=== PATIENT | female | born 1945 | race Caucasian/White ===

== ENCOUNTER 2017-11-24 20:18 | Emergency (ER) | payer OTHER, MEDICAID ==
[2017-11-24 23:13] VITALS: BP 155/75
== END 2017-11-24 23:13 | disposition home or self-care (01) ==
LOC: ED 20:18
DX: S61.211A Laceration without foreign body of left index finger without damage to nail, initial encounter (principal); E11.9 Type 2 diabetes mellitus without complications; W26.0XXA Contact with knife, initial encounter; Y93.89 Activity, other specified; Y92.89 Other specified places as the place of occurrence of the external cause; Y99.8 Other external cause status
CPT/HCPCS: A4570; J2001

== ENCOUNTER 2018-04-17 08:21 | Inpatient (IN) | payer OTHER, MEDICAID ==
[~2018-04-17] VITALS: Ht 157.5 cm; Wt 98.9 kg
[2018-04-17 08:27] VITALS: Ht 157.5 cm; Wt 98.9 kg
--- NOTE | 2018-04-17 08:50 | NUR ---
PT BIB AMBULANCE FROM HOME FOR C/O SOB. PT HAS RECENTLY HAD A COLD, BUT BECAME INCREASINGLY SOB TODAY. PT STATES SHE HAS PAIN WHEN SHE TRIES TO BREATHE. PT HAS HX OF HTN, HIGH CHOLESTEROL AND DIABETES. SON IS AT BEDSIDE AND SPEAKS ARGENTINE. PT HAS 20G IV IN L HAND. PT O2 SATURATION IS WNL, BUT FEELS SOB STILL. PT HAS PRODUCTIVE COUGH WITH GREEN SPUTUM. PT DENIES ANY OTHER SXS AT THIS TIME BESIDES COUGH AND SOB. PT IS TACHY ON THE MONITORS. WILL CONTINUE TO MONITOR. DR VUONG NOTIFIED OF SOB.
[2018-04-17 08:53] LABS: BASOPHIL % 0.5 % (0-2); PLATELET COUNT 191 x10^3mcL (130-400); RED CELL DISTRIBUTION WIDTH 13.4 % (11.5-14.5)
[2018-04-17 09:18] LABS: CALCIUM 9.3 mg/dL (8.5-10.1); CARBON DIOXIDE 28.1 mmol/L (21-32); CHLORIDE SERUM 101 mmol/L (98-107); GLUCOSE SERUM 131 mg/dL (74-106); POTASSIUM SERUM 3.6 mmol/L (3.5-5.1); SODIUM SERUM 137 mmol/L (136-145)
[2018-04-17 09:23] LABS: ALBUMIN 3.5 g/dL (3.4-5.0); ALKALINE PHOSPHATASE 111 U/L (46-116); ALT/SGPT 25 U/L (14-59); AST/SGOT 16 U/L (15-37); TOTAL PROTEIN, SERUM 7.8 g/dL (6.4-8.2)
--- NOTE | 2018-04-17 09:59 | NUR ---
PT ATTEMPTED AMBULATION TO RESTROOM AND BECAME VERY SHORT OF BREATH. NO DISTRESS; SKIN REMAINED WNL. PT STOOD IN PLACE AND RESTED AND WAS THEN WHEELED TO RESTROOM AND BACK. DR VUONG INFORMED OF SAME.
--- NOTE | 2018-04-17 10:15 | NUR ---
ABG ATTEMPTED LEFT RADIAL/BRACHIAL UNABLE TO OBTAIN SAMPLE. PT REFUSING FUTHER ATTEMPTS. PT SON AT BEDSIDE, DR. VUONG NOTIFIED, WILL CONT. TO MONITOR
[2018-04-17 10:18] LABS: microscopic required? YES; urine erythrocyte NEGATIVE (NEGATIVE)
--- NOTE | 2018-04-17 10:54 | NUR ---
ROCEPHIN INFUSING WILL BEGIN NEXT ABX IN 30MIN WHEN THEY ARE DONE.
--- NOTE | 2018-04-17 10:55 | NUR ---
FAMILY AT BEDSIDE. PT HAVING EASY UNLABORED BREATH, RESTING IN BED. NO DISTRESS NOTED AT THIS TIME.
[2018-04-17] MEDS ORDERED: NORCO1 TA2 (12:08)
[2018-04-17] MEDS ORDERED: OMEPRAZOLE20 M4 PO (12:09)
[2018-04-17] MEDS ORDERED: RESTORIL15 MG PO (12:10)
[2018-04-17] MEDS ORDERED: ACT30 PO (12:10)
[2018-04-17] MEDS ORDERED: LISINOPRIL40 MG PO (12:11)
[2018-04-17] MEDS ORDERED: TESSALON PERLE100 MG PO (12:12)
[2018-04-17] MEDS ORDERED: LEVAQUIN750 MG PO (12:12)
[2018-04-17] MEDS ORDERED: ADV100/50 INH (12:13)
[2018-04-17] MEDS ORDERED: PROINH (12:13)
[2018-04-17] MEDS ORDERED: ACETAMINOPHEN A1 TAB (12:13)
--- NOTE | 2018-04-17 13:25 | NUR ---
RECEIVED PT VIA [email or web address] FROM E/D, ACCOMPANIED BY RN AND TRANSPORTER. PT A/A/O X 4, CALM, COOPERATIVE, WITH INTERMITTENT THROBBING H/A / AND DIZZINESS. PT ABLE TO AMBULATE WITH ASSIST FROM GUERNEY TO BED, STATES USES WALKER AT HOME, FALL RISK PROTOCOL INITIATED; HAS ACHING BACK PAIN 08/10. ON TELE # 13, ST, HR 106, DENIES CHEST PAIN OR DISCOMFORT AT THIS TIME. BUL CLEAR, BLL DIM, CHEST RISING EVENLY, R/A, 92%, DRY COUGH. VOIDS FREELY, DENIES DYSURIA. IV SITE 20G, CDI. ORIENTED PT TO ROOM, BED CONTROLS, CALL LIGHT SYSTEM. SIDE RAILS UP X 2, BED IN LOW POSITION. WILL ENDORSE TO KOBE MEEKS.
[2018-04-17 14:02] VITALS: BP 111/63
[2018-04-17 14:50] LABS: CHOLESTEROL/HDL RATIO 4.2; MAGNESIUM 1.9 mg/dL (1.8-2.4); PHOSPHOROUS 2.9 mg/dL (2.5-4.9)
[2018-04-17 14:59] LABS: FREE T4 0.98 ng/dL (0.76-1.46); FREE THYROXINE INDEX 3.2 ug/dL (1.4-4.5); T4(THYROXINE) 9.6 ug/dL (4.7-13.3)
[2018-04-17 16:50] VITALS: BP 106/65
[2018-04-17 17:29] VITALS: BP 106/65
--- NOTE | 2018-04-17 18:22 | NUR ---
ATTEMPT TO GET ABG DOWN IN ER. PT STATED WAS TOO PAINFUL TO STOP. ABG WAS FIRST ATTEMPTED BY RT MAT PENG WHO WAS UNABLE TO GET A SAMPLE WELL. MAT PENG NOTIFIED
--- NOTE | 2018-04-17 19:30 | NUR ---
REPORT RECIEVED FROM DAY SHIFT RN. PATIENT WAS SEEN AND IS RESTING COMFORTBALY IN BED. ON ROOM AIR. NO SOB OR DISTRESS NOTED. DENIES CHEST PAIN. ON ROOM AIR. C/O OF 8 HEADACHE. PROVIDED PATIENT WITH NONPHARM MEASURES SUCH DECREASED STIMULI. IV TO THE LEFT HAND WITH NS RUNNING AT 100ML/HR WELL. PATENT AND INTACT. NO REDNESS OR SWELLING NOTED. COMFORT AND SAFETY MEASURES MAINTAINED. CALL LIGHT WITHIN REACH. EDUCATED PATIENT TO CALL FOR ASSISTANCE. PATIENT VERBALIZED UNDERSTANDING. BED IS LOCKED AND IN THE LOWEST POSITION. SIDE RAILS UP X2. WILL CONTINUE TO MONITOR PATIENT.
--- NOTE | 2018-04-17 20:20 | NUR ---
RT WITH PATIENT ADMINISTEREING BREATHING TREATMENT.
--- NOTE | 2018-04-17 20:22 | NUR ---
PATIENT IS C/O OF 8/10 HEADACHE AFTER NONPHARM MEASURES. MEDICATED PATIENT WITH PRN NORCO PRESCRIBED. WILL CONTINUE TO MONITOR PATIENT AND ASSESS PAIN LEVEL. EDUCATED PATIENT THAT NORCO MAY CAUSE DROWSINESS. PATIENT VERBALIZED UNDERSTANDING.
[2018-04-17 20:29] VITALS: BP 129/62
--- NOTE | 2018-04-17 21:45 | NUR ---
PATIENT IS C/O OF NASAL CONGESTION. NOTIFIED DR. PERKINS. SHE SAID SHE WILL PUT IN A MEDICATION ORDER.
--- NOTE | 2018-04-18 02:30 | NUR ---
PATIENT IS ASLEEP AT THIS TIME. NO SOB OR DISTRESS NOTED. ON ROOM AIR. NO S/S OF PAIN. CALL LIGHT IS WITHIN REACH. IV INFUSING WELL. WILL CONTINUE TO MONITOR.
[2018-04-18 06:10] VITALS: BP 137/70
--- NOTE | 2018-04-18 06:40 | NUR ---
PATIENT SLEPT THROUGHOUT THE NIGHT. NO ACUTE CHANGES NOTED. NO C/O OF PAIN. DENIES CHEST PAIN. IV TO THE LEFT HAND INSFUSING NS WELL. PATENT AND INTACT. NO REDNESS OR SWELLING NOTE. ON ROOM AIR. NO SOB OR DISTRESS NOTED. COMFORT AND SAFETY MEASURES MAINTAINED. CALL LIGHT IS WITHIN REACH. PATIENT INSTRUCTED TO CALL FOR ASSISTANCE. PATIENT VERBALIZED UNDERSTANDING. BED IS LOCKED AND IN THE LOWEST POSITION. SIDE RAILS UP X2. WILL ENDORSE CARE TO DAY SHIFT RN.
--- NOTE | 2018-04-18 07:15 | NUR ---
RECEIVED PT. IN BED A/A/O X3. NO SOB, NO N/V NOTED. PT. DENIES ANY PAIN AT THIS TIME. NS RUNNING AT 100 CC/HR VIA IV SITE AT L HAND. BED IN LOW POS., CALL LIGHT WITHIN REACH. SIDE RAILS UP X3.
[2018-04-18 07:55] VITALS: BP 147/87
[2018-04-18 07:56] LABS: CALCIUM 8.7 mg/dL (8.5-10.1); CHLORIDE SERUM 102 mmol/L (98-107); CREATININE SERUM 0.9 mg/dL (0.6-1.0); GLUCOSE SERUM 193 mg/dL (74-106); POTASSIUM SERUM 4.2 mmol/L (3.5-5.1); SODIUM SERUM 136 mmol/L (136-145)
[2018-04-18 08:08] LABS: PLATELET COUNT 200 x10^3mcL (130-400); RED CELL DISTRIBUTION WIDTH 13.5 % (11.5-14.5)
[2018-04-18 08:10] LABS: BASOPHIL % 0 % (0-2)
[2018-04-18 12:29] VITALS: BP 138/66
[2018-04-18 17:10] VITALS: BP 140/56
--- NOTE | 2018-04-18 18:05 | NUR ---
REMAINS IN STABLE CONDITION AT THIS TIME. WILL CONTINUE TO MONITOR.
--- NOTE | 2018-04-18 19:15 | NUR ---
REPORT RECIEVED FROM DAY SHIFT RN. PATIENT WAS SEEN AND IS RESTING COMFORTABLE AT THIS TIME. ON ROOM AIR. A/O X4. NO SOB OR DISTRESS NOTED. BREATHING IS EVEN AND UNALBORED. DENIES CHEST PAIN. NO C/O OF PAIN. IV TO THE LEFT HAND INFUSING NS WELL. PATENT AND INTACT. NO REDNESS OR SWELLING NOTED. COMFORT AND SAFETY MEASURES MAINTAINED. CALL LIGHT IS WITHIN REACH. INSTRUCTED PATIENT TO CALL FOR ASSISTANCE. BED IS LOCKED AND IN THE LOWEST POSITION. SIDE RAILS UP X2. WILL CONTINUE TO MONITOR PATIENT.
[2018-04-18 20:57] VITALS: BP 137/65
[2018-04-18 21:20] VITALS: BP 124/62
--- NOTE | 2018-04-19 00:24 | NUR ---
ASSISTED PATIENT TO THE BATHROOM. PATIENT IS BACK IN BED. COMFORT AND SAFETY MEASURES MAINTAINED. CALL LIGHT IS WITHIN REACH. INSTRUCTED PATIENT TO CALL FOR ASSISTANCE.
--- NOTE | 2018-04-19 03:23 | NUR ---
PATIENT IS ASLEEP AT THIS TIME. BREATHING IS EVEN AND UNLABORED. NO S/S OF PAIN. NO FACIAL GRIMACING. CALL LIGHT WITHIN REACH. WILL CONTINUE TO MONITOR
--- NOTE | 2018-04-19 03:38 | NUR ---
WBC 11.9. NOTFIED DR. MERCADO. PATIENT IS ON SOLU MEDROL 3 OUT OF 3 DOSES COMPLETED YESTERDAY AT 2100. PATIENT DOES NOT HAVE A TEMP. WILL CONTINUE TO MONITOR
[2018-04-19 05:36] VITALS: BP 143/72
--- NOTE | 2018-04-19 06:24 | NUR ---
PATIENT SLEPT THROUGHOUT THE NIGHT. NO ACUTE CHANGES NOTED. BREATHING IS EVEN AND UNLABORED. DENIES CHEST PAIN. NO C/O OF PAIN THROUGOUT THE SHIFT. LEFT HAND IV INFUSING NS WELL. PATENT. NO REDNESS OR SWELLING. COMFORT AND SAFETY MEASURES MAINTAINED. CALL LIGHT WITHIN REACH. WILL ENDORSE CARE TO DAY SHIFT RN.
[2018-04-19 07:31] LABS: BASOPHIL % 0.1 % (0-2); PLATELET COUNT 193 x10^3mcL (130-400); RED CELL DISTRIBUTION WIDTH 13.4 % (11.5-14.5)
[2018-04-19 07:40] LABS: CALCIUM 8.9 mg/dL (8.5-10.1); CARBON DIOXIDE 26.7 mmol/L (21-32); CHLORIDE SERUM 105 mmol/L (98-107); CREATININE SERUM 0.7 mg/dL (0.6-1.0); GLUCOSE SERUM 256 mg/dL (74-106); POTASSIUM SERUM 4.1 mmol/L (3.5-5.1); SODIUM SERUM 141 mmol/L (136-145)
[2018-04-19 09:36] VITALS: BP 131/58
--- NOTE | 2018-04-19 11:30 | NUR ---
PT. STATED THAT SHE HAS NOT RECEIVED THE FLU VACCINE FOR THE CURRENT FLU SEASON AND THAT SHE HAS NOT HAD THE PNEUMOCOCCAL VACCINE IN THE LAST 5 YEARS. SON AT BEDSIDE AND AGREED WITH PT. REGARDING THE NEED FOR BOTH THE FLU AND PNEUMOCOCCAL VACCINES SINCE THE PT. HAS NOT RECEIVED ANY OF THESE VACCINES. WILL ADMINISTER BOTH THE FLU AND THE PNEUMOCOCCAL VACCINES TODAY.
[2018-04-19 12:22] VITALS: BP 125/51
[2018-04-19 17:14] VITALS: BP 127/51
--- NOTE | 2018-04-19 17:53 | NUR ---
REMAINS IN STABLE CONDITION AT THIS TIME. WILL CONTINUE TO MONITOR.
--- NOTE | 2018-04-19 19:20 | NUR ---
REPORT RECIEVED FROM DAY SHIFT RN. PATIENT WAS SEEN AND IS RESTING COMFORTBALY IN BEDSIDE CHAIR WITH FAMILY AT [facility]. ON ROOM AIR. BREATHING IS EVEN AMD UNLABORED. NO SOB OR DISTRESS NOTED. DENIES CHEST PAIN. IV TO THE LEFT HAND INFUSING NS WELL. PATENT AND INTACT. NO REDNESS OR SWELLING NOTED. NO COMPLAINTS VOICED AT THIS TIME. COMFORT AND SAFETY MEASURES MAINTAINED. CALL LIGHT IS WITHIN REACH. BED IS LOCKED AND IN THE LOWEST POSITION. SIDE RAILS UP X2. INSTRUCTED PATIENT TO CALL FOR ASSISTANCE. WILL CONTINUE TO MONITOR.
[2018-04-19 20:07] VITALS: BP 129/62
--- NOTE | 2018-04-20 03:27 | NUR ---
PATIENT IS ASLEEP AT THIS TIME. NO SOB OR RESP DISTRESS NOTED. ON ROOM AIR. BREATHING IS EVEN AND UNLABORED. NO S/S OF PAIN. CALL LIGHT IS WITHIN REACH. WILL CONTINUE TO MONITOR.
[2018-04-20 05:29] VITALS: BP 126/55
--- NOTE | 2018-04-20 05:35 | NUR ---
PATIENT STATES SHE IS HAVE SOME DIFFICULTY BREATHING. RT CALLED.
--- NOTE | 2018-04-20 06:17 | NUR ---
PATIENT STATES HER BREATHING IS A LITTLE BETTER BUT STILL WORSE THAN BETTER. OS SAT ASSESSED. SATING AT 99% ON ROOM AIR. WHEEZES HEARD ON THE LEFT UPPER LOBE. DR. MERCADO NOTIFIED AND IS AWARE.
--- NOTE | 2018-04-20 06:23 | NUR ---
PATIENT SLEPT THROUGHOUT THE NIGHT. NEW ONSET WHEEZES HEARD ON THE LEFT UPPER LOBE. ON ROOM AIR. SATING AT 99%. NO C/O OF PAIN THROUGHOUT THE NIGHT. IV TO THE LEFT HAND INFUSING NS WELL. PATENT AND INTACT. NO REDNESS OR SWELLING NOTED. CALL LIGHT IS WITHIN REACH. COMFORT AND SAFETY MEASURES MAINTAINED. WILL ENDORSE CARE TO DAY SHIFT RN.
--- NOTE | 2018-04-20 07:38 | NUR ---
A+OX4, TELE 13, WHEEZING AND COUGHING, TOLERATING RA, DENIES PAIN, PULSES MODERATE AND EQUAL BIPIN, RECEIVING HEPARIN SQ, BOWEL SOUNDS ACTIVE, VOIDING FREELY, GENERALIZED WEAKNESS, AMBULATORY, BUE ECCHYMOSIS, IV IN L HAND WITH NS @ 100 ML/HR, SITE WNL.
[2018-04-20 08:42] VITALS: BP 126/44
[2018-04-20 09:01] VITALS: BP 126/44
--- NOTE | 2018-04-20 09:25 | NUR ---
PT RESTING IN BED, TEARFUL AND EMOTIONAL BECAUSE SHE WANTS TO GO HOME, PT GIVEN EMOTIONAL SUPPORT. DAUGHTER AT BEDSIDE INQUIRING ABOUT PT DC TODAY. PER BATCH UNIT TREATER, PT WILL NOT DC TODAY. BATCH UNIT TREATER STATES SHE WILL SPEAK TO DAUGHTER AT BEDSIDE. NO RESPRIATORY DISTRESS NOTED. PT CONT TO WHEEZE AND COUGH.
[2018-04-20 10:06] LABS: BASOPHIL % 0.3 % (0-2); PLATELET COUNT 158 x10^3mcL (130-400); RED CELL DISTRIBUTION WIDTH 13.5 % (11.5-14.5)
[2018-04-20 10:20] LABS: CALCIUM 8.5 mg/dL (8.5-10.1); CARBON DIOXIDE 27.8 mmol/L (21-32); CHLORIDE SERUM 105 mmol/L (98-107); CREATININE SERUM 0.7 mg/dL (0.6-1.0); GLUCOSE SERUM 173 mg/dL (74-106); SODIUM SERUM 142 mmol/L (136-145)
--- NOTE | 2018-04-20 10:28 | NUR ---
PT SITTING IN CHAIR AT BEDSIDE, COMPLAINING OF PATINO, TYLENOL PO GIVEN. DAUGHTER ASSISTED PT TO BATHROOM TO BRUSH TEETH AND WASH UP AND BACK TO CHAIR. NO RESPRIATORY DISTRESS NOTED.
[2018-04-20 10:32] LABS: POTASSIUM SERUM 2.9 mmol/L (3.5-5.1)
--- NOTE | 2018-04-20 10:32 | NUR ---
POTASSIUM 2.9 REPORTED TO ROSI HAWTHORNE
--- NOTE | 2018-04-20 11:36 | NUR ---
PT RESTING IN BED, NO RESPIRATORY DISTRESS NOTED, DENIES PAIN, DAUGHTER AT BEDSIDE.
[2018-04-20 12:43] VITALS: BP 149/65
--- NOTE | 2018-04-20 12:47 | NUR ---
PT SITTING IN CHAIR AT BEDSIDE EATING LUNCH, ASSISTED WITH TRAY SETUP, NO RESPIRATORY DISTRESS NOTED, DENIES PAIN. PT EDUCATED NOT TO GET UP ALONE. CALL LIGHT WITHIN REACH.
--- NOTE | 2018-04-20 13:51 | NUR ---
PT RESTING IN BED, NO RESPIRATORY DISTRESS NOTED, DENIES PAIN, PER PT SHE JUST RECEIVED BREATHING TREATMENT FROM RT AT BEDSIDE. CALL LIGHT WITHIN REACH. SON AT BEDSIDE.
--- NOTE | 2018-04-20 14:46 | NUR ---
PT RESTING IN BED, NO RESPIRATORY DISTRESS NOTED, APPEARS TO BE SLEEPING, IN NO APPARANT PAIN, SON AT BEDSIDE.
[2018-04-20 16:41] VITALS: BP 137/73
--- NOTE | 2018-04-20 17:05 | NUR ---
PT SITTING IN CHAIR AT BEDSIDE, NO RESPIRATORY DISTRESS NOTED, DENIES PAIN.
--- NOTE | 2018-04-20 18:42 | NUR ---
PT SITTING IN CHAIR AT BEDSIDE, NO RESPRAITORY DISTRESS NOTED, DENIES PAIN, IV IN L HAND PATENT AND INFUSING WELL, CALL LIGHT WITHIN REACH.
--- NOTE | 2018-04-20 19:00 | NUR ---
RECEIVED PT SITTING UP IN BEDSIDE CHAIR, NO ACUTE DISTRESS NOTED. BREATHING ON RA, EVEN AND UNLABORED, WHEEZES TO BIPIN UPPER LOBES, DENIES SOB OR DYSPNEA, RT PROTOCOL IN PLACE, O2 SAT 97% AA/OX4, ABLE TO MAKE NEEDS KNOWN, SPEECH CLEAR AND APPROPRIATE. NSR TO TELE #13, NO CP. PULSES PRESENT AND EQUAL THROUGHOUT, NO EDEMA NOTED. ABD ROUND AND SOFT WITH ACTIVE BOWEL SOUNDS, NO N/V/D. FREELY VOIDS URINE WITH BRP. MILD GENERALIZED WEAKNESS, AMBULATORY AND ABLE TO REPOSITION SELF IN BED. SCATTERED ECCHYMOSIS TO BUE, WATER MECHANIC. IV TO LH IN PLACE, INFUSING K RIDER AND IVF WELL, NO PAIN, REDNESS, OR SWELLING NOTED, DRY, PATENT, AND INTACT. COMFORT AND SAFETY MEASURES IN PLACE. ALL NEEDS ASSESSED AND ATTENDED TO. CALL LIGHT WITHIN REACH. WILL CONTINUE TO MONITOR
--- NOTE | 2018-04-20 19:33 | NUR ---
ENDORSED CARE TO PAUL BULLOCK.
[2018-04-20 21:25] VITALS: BP 99/40
[2018-04-21] VITALS (7 sets, daily range): BP systolic 116–164; BP diastolic 46–87
--- NOTE | 2018-04-21 03:20 | NUR ---
PT LAYING IN BED, BREATHING EVEN AND UNLABORED. NO DISTRESS NOTED. PT DENIES ANY DISCOMFORT AT THIS TIME. CALL LIGHT WITHIN REACH. WILL CONTINUE TO MONITOR
--- NOTE | 2018-04-21 04:43 | NUR ---
NO SIGNIFICANT CHANGES TO REPORT, PT COMPLIED WITH NURSING CARE THROUGHOUT THE SHIFT WITH NO ACUTE EVENTS OVERNIGHT. NO DISTRESS NOTED AT THIS TIME, PT LAYING IN BED, BREATHING EVEN AND UNLABORED. COMFORT AND SAFETY MEASURES MAINTAINED. ALL NEEDS ASSESSED AND ATTENDED TO. CALL LIGHT WITHIN REACH. WILL CONTINUE TO MONITOR AND ENDORSE CARE TO DAY SHIFT NURSE
[2018-04-21 07:03] LABS: BASOPHIL % 0.4 % (0-2); PLATELET COUNT 173 x10^3mcL (130-400); RED CELL DISTRIBUTION WIDTH 13.3 % (11.5-14.5)
[2018-04-21 07:07] LABS: CALCIUM 8.8 mg/dL (8.5-10.1); CHLORIDE SERUM 104 mmol/L (98-107); CREATININE SERUM 0.7 mg/dL (0.6-1.0); GLUCOSE SERUM 115 mg/dL (74-106); POTASSIUM SERUM 3.4 mmol/L (3.5-5.1); SODIUM SERUM 142 mmol/L (136-145)
--- NOTE | 2018-04-21 07:35 | NUR ---
RECEIVED PT FROM HEAD CHARRER. PT AWAKE, ALERT. SITTING IN A CHAIR AT BEDSIDE. A/OX4. PT ON RA, LUNGS CTA, NO WHEEZING NOTED. PT ON TELE # 13, DENIES CHEST PAIN. PERIPHERAL PUSES PALPABLE, NO EDEMA NOTED. ACTIVE BOWEL SOUNDS NOTED. NO APPARENT ISSUES WITH ELIMINATION AT THIS TIME IV ACESS, LH WITH NS @ 100ML/HR. C/D/I. PT DENIES PAIN AT THIS TIME. SAFETY MEASURES IN PLACE, BED LOW AND LOCKED. CALL LIGHT WITHIN REACH.
--- NOTE | 2018-04-21 11:00 | NUR ---
PT FAMILY AT BEDSIDE (DAUGHTER) WITH QUESTIONS REGARDING PT STATUS AND DISCHARGE. CORONA Gale EQUITY HOLDER AT BEDSIDE TO ANSWER ALL QUESTIONS AND CONCERNS. NO DISTRESS NOTED AT THIS TIME. SAFETY MAINTAINED.
--- NOTE | 2018-04-21 12:36 | NUR ---
PT SITTING UP AT BEDSIDE. DENIES PAIN. NO ACUTE DISTRESS NOTED AT THIS TIME. FAMILY AT BEDSIDE. SAFETY MEASURES MAINTAINED.
--- NOTE | 2018-04-21 13:32 | NUR ---
REPORTED BP OF 164/71- LISINOPRIL ADMINISTERED 40 MG PO. MED HELD EARLIER DUE TO LOW DIASTOLIC. WILL CONT TO MONITOR.
--- NOTE | 2018-04-21 14:50 | NUR ---
PATIENT BLOOD PRESSURE RE-CHECK. BP 146/61 (MAP 112). NO DISTRESS NOTED AT THIS TIME.
--- NOTE | 2018-04-21 17:38 | NUR ---
PATIENT STABLE AT THIS TIME. NO ACUTE DISTRESS NOTED. PT RESTING COMFORTABLY. SAFETY MEASURES IN PLACE. WILL CONTINUE TO MONITOR AND ENDORSE TO MANAGER [place].
--- NOTE | 2018-04-21 18:17 | NUR ---
PT COMPLAINING OF SORE THROAT. [employer] LENDING ACTIVITIES SUPERVISOR NOTIFIED. NEW ORDER FOR CEPACOL LOZENGE ADMINISTERED. (SEE EMAR) WILL CONTINUE TO MONITOR.
--- NOTE | 2018-04-21 19:00 | NUR ---
RECEIVED PT SITTING UP IN BEDSIDE CHAIR, NO ACUTE DISTRESS NOTED. BREATHING ON RA, EVEN AND UNLABORED, WHEEZES TO BIPIN UPPER LOBES, DENIES SOB OR DYSPNEA, RT PROTOCOL IN PLACE, O2 SAT 95% AA/OX4, ABLE TO MAKE NEEDS KNOWN, SPEECH CLEAR AND APPROPRIATE. NSR TO TELE #13, NO CP. PULSES PRESENT AND EQUAL THROUGHOUT, NO EDEMA NOTED. ABD ROUND AND SOFT WITH ACTIVE BOWEL SOUNDS, NO N/V/D. FREELY VOIDS URINE WITH BRP. MILD GENERALIZED WEAKNESS, AMBULATORY AND ABLE TO REPOSITION SELF IN BED. SCATTERED ECCHYMOSIS TO BUE, TECHNICAL ADMINISTRATIVE ASSISTANT. IV TO LH IN PLACE, INFUSING IVF WELL, NO PAIN, REDNESS, OR SWELLING NOTED, DRY, PATENT, AND INTACT. COMFORT AND SAFETY MEASURES IN PLACE. ALL NEEDS ASSESSED AND ATTENDED TO. CALL LIGHT WITHIN REACH. WILL CONTINUE TO MONITOR
--- NOTE | 2018-04-21 21:25 | NUR ---
ALL DUE MEDS GIVEN WITHOUT INCIDENT. PT C/O SORE THROAT, MEDICATED WITH PRN CEPACOL PER EMAR. NO ACUTE DISTRESS OBSERVED. CALL LIGHT WITHIN REACH. WILL CONTINUE TO MONITOR
[2018-04-22 05:40] VITALS: BP 151/74
[2018-04-22 06:58] LABS: BASOPHIL % 0.3 % (0-2); PLATELET COUNT 162 x10^3mcL (130-400); RED CELL DISTRIBUTION WIDTH 13.6 % (11.5-14.5)
[2018-04-22 07:01] LABS: CALCIUM 8.6 mg/dL (8.5-10.1); CARBON DIOXIDE 30.8 mmol/L (21-32); CHLORIDE SERUM 105 mmol/L (98-107); CREATININE SERUM 0.6 mg/dL (0.6-1.0); GLUCOSE SERUM 121 mg/dL (74-106); POTASSIUM SERUM 3.8 mmol/L (3.5-5.1); SODIUM SERUM 141 mmol/L (136-145)
--- NOTE | 2018-04-22 07:18 | NUR ---
RECEIVED REPORT FROM PAUL BULLOCK. PT RESTING COMFORTABLY IN BED. IV TO LT HAND IS PATENT AND INFUSING NS @ 50 ML/HR. NO REDNESS OR PAIN. TLE # [address] PT DENIES CHEST PAIN. PT ON ROOM AIR. NO C/O SOB AND NO DISTRESS NOTED. ALL QUESTIONS AND CONCERNS ADDRESSED.
[2018-04-22] MEDS ORDERED: RAYOS1 MG PO (08:58)
[2018-04-22] MEDS ORDERED: PRE20 PO (08:58)
[2018-04-22] MEDS ORDERED: ALBUD HHN (08:59)
[2018-04-22] MEDS ORDERED: ZITHROMAX Z-PA250 MG PO (09:01)
[2018-04-22 09:02] VITALS: BP 150/72
--- NOTE | 2018-04-22 09:53 | NUR ---
PT HAVING BREATHING TREATMENT.
--- NOTE | 2018-04-22 10:32 | NUR ---
IN TO SEE PATIENT AND INFORM THAT NEBULIZER WILL BE DELIVERED TO ROOM IN THE NEXT FOUR HOURS. INSTRUCTED PT THAT UPON ARIVAL OF NEBULIZER, HER DAUGHTER WILL BE NOTIFIED FOR PICKUP OF PATIENT. PT VERBALIZED UNDERSTANDING AND HAD NO QUESTIONS.
[2018-04-22 12:18] VITALS: BP 157/76
[2018-04-22 14:59] VITALS: BP 153/87; BP 157/76
--- NOTE | 2018-04-22 15:20 | NUR ---
PT STABLE FOR DISCHRGE PER REGULATORY AUDITOR PHUC. DISCHARGE INSTRUCTIONS AND SUMMARY DISCUSSED WITH PATIENT AND DAUGHTER. BOTH VERBALIZED UNDERSTANDING AND REPORT THAT PT HAS APPOINTMENT WITH PCP ON THE OF THIS MONTH. IV REMOVED. IV POLE CLEARED. TELE MONITOR REMOVED. MONITOR NOTIFIED. ID BANDS CUT. PT ESCORTED TO LOBBY VIA WHEELCHAIR.
== END 2018-04-22 15:29 | disposition home or self-care (01) | DRG 871 ==
LOC: ED 08:21 → DU 12:48
PROVIDERS: Emergency Medicine; Internal Medicine; ADMIT Family Medicine
DX: A41.9 Sepsis, unspecified organism (principal); J96.00 Acute respiratory failure, unspecified whether with hypoxia or hypercapnia; J15.9 Unspecified bacterial pneumonia; N39.0 Urinary tract infection, site not specified; J45.909 Unspecified asthma, uncomplicated; E11.65 Type 2 diabetes mellitus with hyperglycemia; I10 Essential (primary) hypertension; M06.9 Rheumatoid arthritis, unspecified; E78.5 Hyperlipidemia, unspecified; D89.9 Disorder involving the immune mechanism, unspecified; Z68.32 Body mass index [BMI] 32.0-32.9, adult
CPT/HCPCS: 82962; 83880; 84439; 87804; 90658; 90732; J0456; J0696; J1644; J1815; J1940; J2920; J2930; J3480; J7030; J7050; J7613; J7620; J7626; Q0092